=== PATIENT | male | born 1995 | race Caucasian/White ===

== ENCOUNTER 2016-12-26 14:09 | Emergency (ER) | payer SELFPAY ==
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
[2016-12-26 16:29] VITALS: BP 125/53
== END 2016-12-26 15:36 | disposition home or self-care (01) ==
LOC: ER 14:09 → EDSEX 14:09 → ER 15:36
DX: S09.90XA Unspecified injury of head, initial encounter (principal); S06.0X0A Concussion without loss of consciousness, initial encounter; X58.XXXA Exposure to other specified factors, initial encounter
CPT/HCPCS: 99283